=== PATIENT | female | born 1975 | race American Indian/Alaskan Native ===

== ENCOUNTER → 2017-02-15 | Outpatient (REF) | LOC: WSOH 15:50 | DX: Z02.89 Encounter for other administrative examinations (principal) ==

== ENCOUNTER 2017-09-12 11:23 | Emergency (ER) | payer MEDICAID ==
[~2017-09-12] VITALS: Ht 152.4 cm; Wt 56.8 kg
[2017-09-12 11:46] LABS: COLLECTION METHOD CLEAN CATCH
[2017-09-12 12:01] LABS: BASO # 0.1 (0.0-0.2); BASO % 0.5 % (0.0-2.0); EOS % 0.1 % (0-4.0); GRAN # 14.7 (1.4-6.5); GRAN % 87.4 % (42.2-75.2); HEMATOCRIT 39.1 % (37.0-47.0); HEMOGLOBIN 13.1 g/dl (12.5-16.0); LYMPH # 0.8 (1.2-3.4); LYMPH % 4.8 % (20.0-51.0); MEAN CELL VOLUME 88 fl (80.0-100.0); MEAN CORPUSCULAR HEMOGLOBIN 30 pg (27.0-31.0); MEAN CORPUSCULAR HGB CONC 34 g/dl (33.0-37.0); MEAN PLATELET VOLUME 10.7 fl (7.4-10.4); MONO # 1.1 (0.1-0.6); MONO % 6.8 % (1.7-9.3); PLATELET COUNT 186 K/mm3 (130-400); RED BLOOD COUNT 4.43 M/mm3 (4.10-5.30); WHITE BLOOD COUNT 16.9 K/mm3 (4.8-10.8)
[2017-09-12 12:07] LABS: ADJUSTED CALCIUM 9.2 mg/dL (8.4-10.2); ALBUMIN 4.4 gm/dL (3.5-5.0); BILIRUBIN,TOTAL 1.5 mg/dL (0.0-1.0); CALCIUM 9.5 mg/dL (8.4-10.2); CREATININE, serum 0.92 mg/dL (0.52-1.25); POTASSIUM 3.9 mmol/L (3.4-5.0); TOTAL PROTEIN 7.6 gm/dL (6.4-8.2)
[2017-09-12 12:13] LABS: MUCOUS Present /lpf; PH 5 (5-8); URINE APPEARANCE Cloudy; URINE BACTERIA Rare /hpf; URINE BILIRUBIN Negative (NEGATIVE); URINE BLOOD 3+ (NEGATIVE); URINE COLOR Amber; URINE GLUCOSE Negative (NEGATIVE); URINE KETONE 1+ (NEGATIVE); URINE LEUKOCYTE ESTERASE 1+ (NEGATIVE); URINE PROTEIN(semi-quant) 2+ (NEGATIVE); URINE RBC >50 /hpf
[2017-09-12 12:14] LABS: URINE WBC >50 /hpf
[2017-09-12] MEDS ORDERED: CIPRO 500MG TA500 MG PO (13:21)
[2017-09-12 15:15] VITALS: PULSE 75; TEMP 97.1
[2017-09-12 16:23] VITALS: BP 99/52
== END 2017-09-12 16:23 | disposition home or self-care (01) ==
LOC: COL.ER 11:23
PROVIDERS: Emergency Medicine
DX: N39.0 Urinary tract infection, site not specified (principal); N12 Tubulo-interstitial nephritis, not specified as acute or chronic
CPT/HCPCS: J0696; J2765; J3010; J7030

== ENCOUNTER → 2017-12-27 | Outpatient (CLI) | payer MEDICAID ==
[~2017-12-27] MED LIST: CIPRO 500MG TA500 MG PO
== END ==
LOC: COL.RAD 12-24 14:15
DX: R10.11 Right upper quadrant pain (principal)

== ENCOUNTER 2020-03-12 08:51 | Emergency (ER) | payer MEDICAID ==
[~2020-03-12] VITALS: Ht 152.4 cm; Wt 52.3 kg
[2020-03-12 08:52] VITALS: BP 99/52; TEMP 96.7
[2020-03-12] MEDS ORDERED: VYVANSE30 MG PO (09:20)
[2020-03-12] MEDS ORDERED: PREDNISONE20 MG PO (10:39)
[2020-03-12 10:55] VITALS: PULSE 56
== END 2020-03-12 10:56 | disposition home or self-care (01) ==
LOC: COL.ER 08:51
DX: T78.1XXA Other adverse food reactions, not elsewhere classified, initial encounter (principal); L50.0 Allergic urticaria; F90.9 Attention-deficit hyperactivity disorder, unspecified type; F17.290 Nicotine dependence, other tobacco product, uncomplicated
CPT/HCPCS: J1200; J2930; J7030